=== PATIENT | male | born 2000 | race Two or more races ===

== ENCOUNTER 2020-09-07 10:27 | Emergency (ER) | payer SELFPAY ==
[2020-09-07] MEDS ORDERED: Dexamethasone 4 MG TAB ONE (12:12)
== END 2020-09-07 12:13 | disposition home or self-care (01) ==
LOC: CSHERS 10:27
DX: J02.9 Acute pharyngitis, unspecified (principal)
CPT/HCPCS: 87081; 87430; 99283; J8540